=== PATIENT | female | born 1935 | race Asian ===

== ENCOUNTER 2019-12-01 21:11 | Inpatient (IN) | payer MEDICARE, OTHER ==
[~2019-12-01] VITALS: Ht 154.9 cm; Wt 53.0 kg
[2019-12-01 21:16] VITALS: BP 144/80
--- NOTE | 2019-12-01 21:29 | Emergency Room Report ---
History of Present Illness General Chief Complaint: Syncope Source: Patient, EMS (Serjio Shirley MD) Present Illness HPI Patient is an 84-year-old female who presents after syncopal episodes at home. Patient reportedly had 2 syncopal episodes earlier today. Had Been having increased generalized rash for 1 day. Patient had vomited twice earlier in the day. Reports feeling lightheaded prior to episode of loss of consciousness. Patient subsequently had been back to her mental status. Patient was standing at the time of initial syncopal episode. Per family member patient had unwitnessed fall. Patient had second syncopal episode which was witnessed by family member while attempting to get to the bathroom. Patient had no recent fever. (Serjio Shirley MD) Allergies: Coded Allergies: No Known Allergies (Unverified , 12/01/19) COVID-19 Screening Contact w/high risk pt: No Experienced COVID-19 symptoms?: No COVID-19 Testing performed MANAGER BUSINESS: No (Serjio Shirley MD) Patient History Past Medical History: see triage record Reviewed Nursing Documentation: PMH: Agreed; PSxH: Agreed (Serjio Shirley MD) Nursing Documentation-PMH Hx Hypertension: Yes (Serjio Shirley MD) Review of Systems Respiratory: Reports: no symptoms Skin: Reports: rash Allergic: Reports: urticaria All Other Systems: negative except mentioned in HPI (Serjio Shirley MD) Physical Exam Vital Signs Date Time Temp Pulse Resp B/P (MAP) Pulse Ox O2 Delivery O2 Flow Rate FiO2 12/01/19 21:08 97.9 90 18 144/80 (101) 99 Room Air Sp02 EP Interpretation: normal General Appearance: alert, GCS 15, Chronically Ill ENT: normal ENT inspection Neck: limited range of motion Respiratory: lungs clear Cardiovascular #1: normal peripheral pulses, no edema Gastrointestinal: normal inspection, soft Musculoskeletal: back normal, normal range of motion Neurologic: alert, motor strength/tone normal, educational technology specialist III-XII nml as tested, oriented x3 Skin: other - Diffuse urticarial rash (Serjio Shirley MD) Medical Decision Making Diagnostic Impression: Primary Impression: Recurrent syncope Additional Impression: Head injury ER Course Presented for syncopal episodes. Differential diagnosis include was not limited to arrhythmia, vasovagal syncope, orthostatic hypotension, allergic reaction among others. Because of complexity of patient's case laboratory tests and imaging studies were ordered. EKG interpreted by me showed normal sinus rhythm with a rate of 86. Laboratory testing was ordered and patient was given Solu-Medrol due to what appears to be some urticarial rash appears to be an allergic reaction. Patient was normotensive. She does have prior history of hypertension but denies any prior cardiac history. She does not describe any palpitations but did state she felt lightheaded prior to passing out. Because of the patient's multiple syncopal episodes today feel inpatient hospitalization is warranted. Laboratory testing is currently partially pending but patient was noted to have markedly elevated d-dimer. CT imaging of the head was ordered due to recent trauma. CT of the chest was ordered for possible pulmonary embolism. Chest x-ray read by radiology showed no evidence of acute pathology. Patient was endorsed to Dr. Hare pending CT imaging as well as authorization for admission. Labs Test 12/01/19 21:30 12/01/19 21:45 White Blood Count 9.8 K/UL (4.8-10.8) Red Blood Count 4.51 M/UL (4.20-5.40) Hemoglobin 15.3 G/DL (12.0-16.0) Hematocrit 45.4 % (37.0-47.0) Mean Corpuscular Volume 101 FL (80-99) Mean Corpuscular Hemoglobin 34.0 PG (27.0-31.0) Mean Corpuscular Hemoglobin Concent 33.8 G/DL (32.0-36.0) Red Cell Distribution Width 12.3 % (11.6-14.8) Platelet Count 223 K/UL (150-450) Mean Platelet Volume 7.9 FL (6.5-10.1) Neutrophils (%) (Auto) 78.6 % (45.0-75.0) Lymphocytes (%) (Auto) 15.1 % (20.0-45.0) Monocytes (%) (Auto) 5.5 % (1.0-10.0) Eosinophils (%) (Auto) 0.3 % (0.0-3.0) Basophils (%) (Auto) 0.6 % (0.0-2.0) Prothrombin Time 11.1 SEC (9.30-11.50) Prothromb Time International Ratio 1.0 (0.9-1.1) Activated Partial Thromboplast Time 22 SEC (23-33) D-Dimer 33.51 mg/L FEU (0.00-0.49) (Serjio Shirley MD) ER Course Patient was signed out to me by the previous physician. She remained hemodynamically stable throughout the rest of her stay in the emergency department. CT head showed chronic age-related changes but no acute intracranial hemorrhage or space-occupying lesion. CT angiography of the chest was negative for any pulmonary embolism or aortic dissection. There was a very mild left effusion with posterior dependent atelectasis. Otherwise largely unremarkable. Patient was admitted to telemetry in stable condition. (Austin Hare M.D.) EKG Diagnostic Results Rate: normal Rhythm: NSR ST Segments: no acute changes (Serjio Shirley MD) Last Vital Signs Date Time Temp Pulse Resp B/P (MAP) Pulse Ox O2 Delivery O2 Flow Rate FiO2 12/01/19 21:16 97.9 90 18 144/80 99 Room Air Status: improved (Serjio Shirley MD) Disposition: ADMITTED INPATIENT Condition: Serious Serjio Shirley MD Dec 01, 2019 21:29 Austin Hare M.D. Dec 02, 2019 00:59
[2019-12-01] MEDS ORDERED: DiphenhydrAMINE 50mg/ml Inj IVP ONE (21:30)
[2019-12-01] MEDS ORDERED: Solu-MEDROL 125mg Inj IVP ONE (21:30)
[2019-12-01 21:41] LABS: BASOPHILS % (AUTO) 0.6 % (0.0-2.0); EOSINOPHILS % (AUTO) 0.3 % (0.0-3.0); HEMATOCRIT 45.4 % (37.0-47.0); HEMOGLOBIN 15.3 G/DL (12.0-16.0); LYMPHOCYTES % (AUTO) 15.1 % (20.0-45.0); MEAN CORPUSCULAR VOLUME 101 FL (80-99); MONOCYTES % (AUTO) 5.5 % (1.0-10.0); NEUTROPHILS % (AUTO) 78.6 % (45.0-75.0); PLATELET COUNT 223 K/UL (150-450); RED BLOOD COUNT 4.51 M/UL (4.20-5.40); RED CELL DISTRIBUTION WIDTH 12.3 % (11.6-14.8); WHITE BLOOD COUNT 9.8 K/UL (4.8-10.8)
--- NOTE | 2019-12-01 22:11 | Diagnostic Imaging Report ---
EXAM: XR Chest, 1 View CLINICAL HISTORY: SYNCOPE TECHNIQUE: Frontal view of the chest. COMPARISON: None. FINDINGS: Lungs: Unremarkable. No consolidation. Pleural space: Unremarkable. No pneumothorax. Heart: Unremarkable. No cardiomegaly. Mediastinum: Unremarkable. Bones/joints: Osteopenia along with degenerative disease of the shoulders and spine. Vasculature: Atherosclerotic disease of aorta. IMPRESSION: No acute cardiopulmonary disease.
[2019-12-01] MEDS ORDERED: Omnipaque 350 100ml vial INJ PRN (22:30)
[2019-12-01 22:35] LABS: CALCIUM 9.5 MG/DL (8.5-10.1); CREATININE 0.9 MG/DL (0.55-1.30); POTASSIUM 4.2 MMOL/L (3.5-5.1)
[2019-12-01 22:42] LABS: ALBUMIN 3.2 G/DL (3.4-5.0); ALBUMIN/GLOBULIN RATIO 0.8 (1.0-2.7); BILIRUBIN,TOTAL 0.7 MG/DL (0.2-1.0)
[2019-12-01 23:00] VITALS: BP 133/77
--- NOTE | 2019-12-01 23:25 | Diagnostic Imaging Report ---
EXAM: CT Head Without Intravenous Contrast CLINICAL HISTORY: FALL TECHNIQUE: Axial computed tomography images of the head/brain without intravenous contrast. CTDI is 53.4 mGy and DLP is 992.1 mGy-cm. One or more of the following dose reduction techniques were used: automated exposure control, adjustment of the mA and/or kV according to patient size, use of iterative reconstruction technique. COMPARISON: None. FINDINGS: Brain: Moderate generalized brain atrophy. Decreased attenuation within the deep white matter consistent with microangiopathic white matter disease. No hemorrhage. Ventricles: Unremarkable. No ventriculomegaly. Bones/joints: Unremarkable. No acute fracture. Soft tissues: Unremarkable. Sinuses: Unremarkable as visualized. No acute sinusitis. Mastoid air cells: Unremarkable as visualized. No mastoid effusion. IMPRESSION: Chronic changes as described. No acute intracranial hemorrhage or space-occupying lesion.
[2019-12-01 23:33] LABS: APPEARANCE,URINE CLEAR; BILIRUBIN, URINE NEGATIVE (NEGATIVE); COLOR,URINE PALE YELLOW; GLUCOSE, URINE (UA) NEGATIVE (NEGATIVE); KETONES,URINE NEGATIVE (NEGATIVE); LEUKOCYTE ESTERASE ,URINE 1+ (NEGATIVE); NITRITE,URINE NEGATIVE (NEGATIVE); PH,URINE 7 (4.5-8.0); PROTEIN,URINE NEGATIVE (NEGATIVE); UROBILINOGEN,URINE NORMAL MG/DL (0.0-1.0)
--- NOTE | 2019-12-01 23:44 | Diagnostic Imaging Report ---
EXAM: CT Angiography Chest With Intravenous Contrast CLINICAL HISTORY: SYNCOPE TECHNIQUE: Axial computed tomographic angiography images of the chest with intravenous contrast. CTDI is 50.5 mGy and DLP is 139.9 mGy-cm. One or more of the following dose reduction techniques were used: automated exposure control, adjustment of the mA and/or kV according to patient size, use of iterative reconstruction technique. MIP reconstructed images were created and reviewed. COMPARISON: None. FINDINGS: Limitations: Exam is limited due to motion and breathing artifact along with decreased inspiratory effort. Pulmonary arteries: Normal enhancement of the pulmonary arteries. No pulmonary embolism. Aorta: Atherosclerotic disease of aorta with no aneurysm. No dissection. Lungs: There is multi lobar bilateral posterior dependent atelectasis more significant with the bilateral lower lobes. There is decreased respiratory effort with vascular crowding. No mass. Pleural space: Unremarkable. No significant effusion. No pneumothorax. Heart: Mild cardiomegaly. No significant pericardial effusion. No evidence of RV dysfunction. Bones/joints: Diffuse osteopenia along with multilevel disc degenerative disease. No acute fracture. No dislocation. Soft tissues: Unremarkable. Lymph nodes: Right-sided hilar lymph node measuring 1.7 x 1.5 cm. Right infracarinal lymph node measuring 1.5 x 1.9 cm. Small lymph nodes along the aortopulmonary region largest measuring 4.9 cm maximum dimension. Liver: Upper abdominal structures revealed diffuse fatty liver. Low-attenuation nodules within the left thyroid lobe largest measuring 1. 0 cm. IMPRESSION: 1. No pulmonary embolus or aortic dissection. 2. Mild left effusion with posterior dependent atelectasis. 3. Mild mediastinal and right hilar lymphadenopathy, etiology indeterminate. 4. Diffuse fatty liver. 5. Low-attenuation lesions within the thyroid gland, nonspecific. If indicated, thyroid gland may be further evaluated with ultrasound in the nonacute setting.
[2019-12-02] VITALS (7 sets, daily range): BP systolic 122–163; BP diastolic 62–90
[2019-12-02] MEDS ORDERED: NORVASC5 MG ORAL (01:43)
[2019-12-02] MEDS ORDERED: ECOTRIN325 MG ORAL (01:46)
[2019-12-02] MEDS ORDERED: LOSARTAN POTASS25 MG ORAL (01:46)
[2019-12-02] MEDS ORDERED: SIMVASTATIN20 MG ORAL (01:46)
[2019-12-02] MEDS ORDERED: Losartan 25mg tab ORAL PRN (05:30)
[2019-12-02 07:56] LABS: HEMATOCRIT 42.8 % (37.0-47.0); HEMOGLOBIN 14.5 G/DL (12.0-16.0); MEAN CORPUSCULAR VOLUME 98 FL (80-99); PLATELET COUNT 227 K/UL (150-450); RED BLOOD COUNT 4.37 M/UL (4.20-5.40); RED CELL DISTRIBUTION WIDTH 11.6 % (11.6-14.8); WHITE BLOOD COUNT 5.9 K/UL (4.8-10.8)
[2019-12-02 08:11] LABS: CALCIUM 8.2 MG/DL (8.5-10.1); CREATININE 0.9 MG/DL (0.55-1.30); POTASSIUM 4.4 MMOL/L (3.5-5.1)
[2019-12-02] MEDS: Aspirin EC 81mg tab ORAL SCH (08:50)
[2019-12-02] MEDS: Heparin 5000 units/ml inj SUBQ SCH ×2 (08:52→20:58)
[2019-12-02] MEDS ORDERED: Losartan 25mg tab ORAL SCH (09:00)
--- NOTE | 2019-12-02 13:21 | History & Physical ---
History and Physical History & Physicial 84-year-old female presents with multiple syncopal episodes at home. Family at the bedside and care was discussed. Currently she is doing well. Patient has noticed worsening generalized rash which is pruritic. Patient also with vomitus of bilious material. Currently the patient is comfortable in bed. Family is concerned about the rash. There is no significant history of cardiac disease. Past medical history notable for urticaria, hypertension, hypercholesterolemia Medications reviewed and reconciled Allergies reviewed and reconciled Social historynon-smoker nondrinker unemployed lives with family Review of systems otherwise negative Physical examination Well-developed female overall comfortable Vital signs reviewed Lungs are fairly clear and symmetric Cardiac exam normal sinus to regular rhythm without murmurs rubs gallops Abdomen soft nontender Extremities no cyanosis clubbing or edema Neurologically overall nonfocal alert but [id number] next vital signs 157/90, 106, 97 6, 19 Lab data CAT scan with small left pleural effusion Mild mediastinal and right hilar lymphadenopathy Fatty liver Labs Test 12/01/19 21:30 12/01/19 21:45 12/01/19 23:22 12/02/19 05:55 White Blood Count 9.8 K/UL (4.8-10.8) 5.9 K/UL (4.8-10.8) Red Blood Count 4.51 M/UL (4.20-5.40) 4.37 M/UL (4.20-5.40) Hemoglobin 15.3 G/DL (12.0-16.0) 14.5 G/DL (12.0-16.0) Hematocrit 45.4 % (37.0-47.0) 42.8 % (37.0-47.0) Mean Corpuscular Volume 101 FL (80-99) 98 FL (80-99) Mean Corpuscular Hemoglobin 34.0 PG (27.0-31.0) 33.1 PG (27.0-31.0) Mean Corpuscular Hemoglobin Concent 33.8 G/DL (32.0-36.0) 33.8 G/DL (32.0-36.0) Red Cell Distribution Width 12.3 % (11.6-14.8) 11.6 % (11.6-14.8) Platelet Count 223 K/UL (150-450) 227 K/UL (150-450) Mean Platelet Volume 7.9 FL (6.5-10.1) 6.6 FL (6.5-10.1) Neutrophils (%) (Auto) 78.6 % (45.0-75.0) % (45.0-75.0) Lymphocytes (%) (Auto) 15.1 % (20.0-45.0) % (20.0-45.0) Monocytes (%) (Auto) 5.5 % (1.0-10.0) % (1.0-10.0) Eosinophils (%) (Auto) 0.3 % (0.0-3.0) % (0.0-3.0) Basophils (%) (Auto) 0.6 % (0.0-2.0) % (0.0-2.0) Prothrombin Time 11.1 SEC (9.30-11.50) Prothromb Time International Ratio 1.0 (0.9-1.1) Activated Partial Thromboplast Time 22 SEC (23-33) D-Dimer 33.51 mg/L FEU (0.00-0.49) Sodium Level 140 MMOL/L (136-145) 146 MMOL/L (136-145) Potassium Level 4.2 MMOL/L (3.5-5.1) 4.4 MMOL/L (3.5-5.1) Chloride Level 105 MMOL/L (98-107) 109 MMOL/L (98-107) Carbon Dioxide Level 24 MMOL/L (21-32) 23 MMOL/L (21-32) Anion Gap 11 mmol/L (5-15) 14 mmol/L (5-15) Blood Urea Nitrogen 20 mg/dL (7-18) 15 mg/dL (7-18) Creatinine 0.9 MG/DL (0.55-1.30) 0.9 MG/DL (0.55-1.30) Estimat Glomerular Filtration Rate 59.7 mL/min (>60) 59.7 mL/min (>60) Glucose Level 217 MG/DL (74-106) 285 MG/DL (74-106) Calcium Level 9.5 MG/DL (8.5-10.1) 8.2 MG/DL (8.5-10.1) Total Bilirubin 0.7 MG/DL (0.2-1.0) Aspartate Amino Transf (AST/SGOT) 43 U/L (15-37) Alanine Aminotransferase (ALT/SGPT) 81 U/L (12-78) Alkaline Phosphatase 59 U/L (46-116) Troponin I 0.008 ng/mL (0.000-0.056) Pro-B-Type Natriuretic Peptide 181 pg/mL (0-125) Total Protein 7.1 G/DL (6.4-8.2) Albumin 3.2 G/DL (3.4-5.0) Globulin 3.9 g/dL Albumin/Globulin Ratio 0.8 (1.0-2.7) Urine Color Pale yellow Urine Appearance Clear Urine pH 7 (4.5-8.0) Urine Specific [place] 1.005 (1.005-1.035) Urine Protein Negative (NEGATIVE) Urine Glucose (UA) Negative (NEGATIVE) Urine Ketones Negative (NEGATIVE) Urine Blood Negative (NEGATIVE) Urine Nitrite Negative (NEGATIVE) Urine Bilirubin Negative (NEGATIVE) Urine Urobilinogen Normal MG/DL (0.0-1.0) Urine Leukocyte Esterase 1+ (NEGATIVE) Urine RBC 0-2 /HPF (0 - 2) Urine WBC 0-2 /HPF (0 - 2) Urine Squamous Epithelial Cells Occasional /LPF Urine Bacteria Occasional /HPF (NONE) Differential Total Cells Counted 100 Neutrophils % (Manual) 84 % (45-75) Lymphocytes % (Manual) 15 % (20-45) Monocytes % (Manual) 1 % (1-10) Eosinophils % (Manual) 0 % (0-3) Basophils % (Manual) 0 % (0-2) Band Neutrophils 0 % (0-8) Platelet Estimate Adequate Platelet Morphology Normal Red Blood Cell Morphology Normal IMPRESSION Syncope Hypertension Hypercholesterolemia Mild protein calorie malnutrition Plan IV hydration Cardiology evaluation Resume medication Physical therapy evaluation Monitor clinically and proceed with discharge planning impression, plan, and exam edited and reviewed in detail care discussed with Ayan Malloy MD Dec 02, 2019 13:21
[2019-12-02] MEDS: Losartan 25mg tab ORAL SCH (17:47)
[2019-12-02] MEDS ORDERED: Triamcinolone 0.1% 15gm Cr TOPIC PRN (19:00)
[2019-12-02] MEDS: Solu-MEDROL 40mg Inj IVP SCH (20:58)
[2019-12-02] MEDS: Atorvastatin 20mg tab ORAL SCH (20:58)
--- NOTE | 2019-12-02 23:30 | Consultation ---
DATE OF CONSULTATION: 12/02/2019 CARDIOLOGY CONSULTATION CONSULTING PHYSICIAN: David Pardo MD REQUESTING PHYSICIAN: Ayan Pacheco MD REASON FOR CONSULTATION: Syncope. HISTORY OF PRESENT ILLNESS: The patient is an 84-year-old female. She has had several syncopal episodes at home. The patient apparently has been increasingly weak, withdrawn, and has had several episodes of vomitus of biliary material. She also has developed rash over the past couple of days. There is no prior history of cardiovascular disease other than hypertension. The patient did not sustain any injuries when passing out. The patient's first syncopal episode was unwitnessed; however, her second episode was witnessed by a family member while she was attempting to get to the bathroom. PAST MEDICAL HISTORY: Hyperlipidemia and hypertension. ALLERGIES: None. MEDICATIONS: Reviewed and reconciled. FAMILY HISTORY: Noncontributory. SOCIAL HISTORY: Negative for smoking, alcohol, or substance abuse. REVIEW OF SYSTEMS: Notable for rash and urticaria, otherwise all systems negative. PHYSICAL EXAMINATION: VITAL SIGNS: Blood pressure 144/80, heart rate 90, respiratory rate 18, and afebrile in the emergency room. Today, blood pressure 157/90, heart rate 106, respiratory rate 19. HEENT: Conjunctivae pink. Oropharynx clear. Mucous membranes dry. NECK: Supple. LUNGS: Clear. CARDIAC: Regular rhythm. Rapid rate. Normal S1, S2 with no murmur. ABDOMEN: Soft and nontender. EXTREMITIES: No edema. NEUROLOGIC: Symmetric strength. No asterixis. LABORATORY AND DIAGNOSTIC DATA: White count 9.8, hemoglobin 15.3, platelets 223,000. Sodium 146, potassium 4.4, bicarb 23, BUN 15, creatinine 0.9. Urinalysis, no active sediment. D-dimer is elevated to 33. Chest x-ray and CT angiogram of the chest were negative for pulmonary embolus or infiltrate. There was evidence of a small left pleural effusion and mild hilar adenopathy. EKG revealed sinus rhythm with no acute abnormalities. Echocardiogram revealed normal ejection fraction with no significant valve disease. IMPRESSION: Syncope, likely vasovagally mediated; dehydration and hypernatremia with mild hypovolemia; history of hypertension, now with rising blood pressure trend; history of hyperlipidemia; mild protein-calorie malnutrition, and uriticaria. No signs of acute coronary insufficiency or congestive heart failure. PLAN: Hydration. Monitor orthostatics. Free-water replacement. Avoid tight blood pressure control. Cardiac monitoring. David Pardo M.D. DR: Angelica JOB#: [id number] CC:
[2019-12-03] VITALS: BP 154/75
[2019-12-03 04:00] VITALS: BP 146/66
[2019-12-03 08:00] VITALS: BP 141/74
--- NOTE | 2019-12-03 08:17 | General Progress Note ---
Assessment/Plan Assessment/Plan: IMPRESSION Syncope Hypertension Hypercholesterolemia Mild protein calorie malnutrition possible orthostasis allergic dermatitis Plan IV steroids and TMC cream for rash IV hydration Cardiology evaluation noted Reviewed medication Physical therapy evaluation and dc planning Monitor clinically and proceed with discharge planning impression, plan, and exam edited and reviewed in detail care discussed with RN Subjective Allergies: Coded Allergies: No Known Allergies (Unverified , 12/01/19) Subjective overnight care reviewed no distress Objective Last 24 Hour Vital Signs Date Time Temp Pulse Resp B/P (MAP) Pulse Ox O2 Delivery O2 Flow Rate FiO2 12/03/19 04:00 75 12/03/19 04:00 97.7 72 20 146/66 (92) 95 12/03/19 01:21 154/75 12/03/19 00:00 97.5 84 20 154/75 (101) 95 12/03/19 00:00 83 12/03/19 00:00 95 91 85 12/02/19 21:00 Room Air 12/02/19 20:00 97.9 94 20 122/62 (82) 96 12/02/19 20:00 90 12/02/19 17:47 146/67 12/02/19 16:00 101 12/02/19 16:00 97.6 105 19 146/67 (93) 95 12/02/19 12:00 98.0 97 18 163/89 (113) 97 12/02/19 12:00 112 12/02/19 11:16 106 12/02/19 09:00 Room Air 12/02/19 08:49 157/90 12/02/19 08:49 106 157/90 Intake and Output 12/02/19 12/03/19 19:00 07:00 Intake Total 800 ml Output Total 400 ml Balance 800 ml -400 ml Other 800 ml Output Urine Total 400 ml # Voids 4 # Bowel Movements 1 Height (Feet): 5 Height (Inches): 1.00 Weight (Pounds): 110 Objective WDWN NAD clear breath sounds bilaterally without rhonchi or wheeze [id number] without MRG NABS nontender no HSM no CCE nonfocal Ayan Pacheco MD Dec 03, 2019 08:17
[2019-12-03 10:02] LABS: ANION GAP 10 mmol/L (5-15); BLOOD UREA NITROGEN 13 mg/dL (7-18); CALCIUM 7.8 MG/DL (8.5-10.1); CARBON DIOXIDE 24 MMOL/L (21-32); CHLORIDE 112 MMOL/L (98-107); CREATINE KINASE 124 U/L (26-308); CREATININE 0.7 MG/DL (0.55-1.30); POTASSIUM 3.9 MMOL/L (3.5-5.1); SODIUM 146 MMOL/L (136-145)
[2019-12-03] MEDS: Solu-MEDROL 40mg Inj IVP SCH (10:23)
[2019-12-03] MEDS: Aspirin EC 81mg tab ORAL SCH (10:23)
[2019-12-03] MEDS: Losartan 25mg tab ORAL SCH ×2 (10:24→18:00)
[2019-12-03] MEDS: Heparin 5000 units/ml inj SUBQ SCH ×2 (10:34→20:49)
[2019-12-03 12:00] VITALS: BP 138/64
[2019-12-03 16:00] VITALS: BP 147/62
[2019-12-03 20:00] VITALS: BP 147/81
[2019-12-03] MEDS: Atorvastatin 20mg tab ORAL SCH (20:49)
[2019-12-04] VITALS: BP 144/77
--- NOTE | 2019-12-04 00:49 | Cardiology Progress Note ---
Subjective DATE OF SERVICE: Dec 03, 2019 More alert On IVF Still with multiple electrolyte abn Monitor: sinus with no stacy or tachyarrhythmias No LOC Objective Last 24 Hour Vital Signs Date Time Temp Pulse Resp B/P (MAP) Pulse Ox O2 Delivery O2 Flow Rate FiO2 12/03/19 21:00 Room Air 12/03/19 20:00 98.1 73 18 147/81 (103) 97 12/03/19 20:00 76 12/03/19 18:00 147/62 12/03/19 16:00 89 12/03/19 16:00 97.5 68 18 147/62 (90) 97 12/03/19 12:00 97.7 67 18 138/64 (88) 96 12/03/19 12:00 74 12/03/19 10:26 65 141/74 12/03/19 10:24 141/74 12/03/19 09:00 Room Air 12/03/19 08:00 63 12/03/19 08:00 96.2 65 18 141/74 (96) 97 12/03/19 04:00 75 12/03/19 04:00 97.7 72 20 146/66 (92) 95 12/03/19 01:21 154/75 ROS: unchanged from my eval on 12/02/19. HEENT: normal ENT inspection RHYTHM: NSR LUNGS: lungs clear bilaterally CARDIAC: normal rate, regular rhythm, normal S1 and S2 ABDOMEN: normal bowel sounds, non tender, soft, no organomegaly EXTREMITIES: normal range of motion, non-tender, No edema Laboratory Tests Test 12/03/19 08:20 Sodium Level 146 MMOL/L (136-145) H Potassium Level 3.9 MMOL/L (3.5-5.1) Chloride Level 112 MMOL/L (98-107) H Carbon Dioxide Level 24 MMOL/L (21-32) Anion Gap 10 mmol/L (5-15) Blood Urea Nitrogen 13 mg/dL (7-18) Creatinine 0.7 MG/DL (0.55-1.30) Estimat Glomerular Filtration Rate > 60 mL/min (>60) Glucose Level 208 MG/DL (74-106) H Calcium Level 7.8 MG/DL (8.5-10.1) L Magnesium Level 1.9 MG/DL (1.8-2.4) Total Creatine Kinase 124 U/L (26-308) Microbiology Date/Time Source Procedure Growth Status 12/01/19 21:45 Nasopharynx SARS-CoV-2 RdRp Gene Assay - Final Complete Assessment/Plan Assessment/Plan Vasovagally mediated syncopal episode Hypovolemia Dehydration/hypernatremia Hypertension/HHD Urticarial rash Plan: Hypotonic IVF Continue telemetry additional 24hrs Steroid taper per PCP DVT prophyl David Pardo MD Dec 04, 2019 00:49
[2019-12-04 04:00] VITALS: BP 152/77
[2019-12-04 08:00] VITALS: BP 165/73
[2019-12-04] MEDS: Solu-MEDROL 40mg Inj IVP SCH (08:43)
[2019-12-04] MEDS: Losartan 25mg tab ORAL SCH ×2 (08:43→17:28)
[2019-12-04] MEDS: Aspirin EC 81mg tab ORAL SCH (08:43)
[2019-12-04] MEDS: Heparin 5000 units/ml inj SUBQ SCH ×2 (08:44→21:11)
--- NOTE | 2019-12-04 11:16 | General Progress Note ---
Assessment/Plan Assessment/Plan: IMPRESSION Syncope Hypertension Hypercholesterolemia Mild protein calorie malnutrition possible orthostasis allergic dermatitis Plan IV steroids and TMC cream for rash- dc in am IV hydration- hypotonic Cardiology evaluation noted Reviewed medication Physical therapy evaluation and dc planning Monitor clinically and proceed with discharge planning in am if stable and sodium improved impression, plan, and exam edited and reviewed in detail care discussed with RN Subjective Allergies: Coded Allergies: No Known Allergies (Unverified , 12/01/19) Subjective overnight care reviewed no distress RASH better Objective Last 24 Hour Vital Signs Date Time Temp Pulse Resp B/P (MAP) Pulse Ox O2 Delivery O2 Flow Rate FiO2 12/04/19 09:00 Room Air 12/04/19 08:43 165/73 12/04/19 08:43 79 165/73 12/04/19 08:00 97.5 79 18 165/73 (103) 96 12/04/19 08:00 82 12/04/19 04:50 70 68 74 12/04/19 04:00 97.7 80 18 152/77 (102) 96 12/04/19 04:00 74 12/04/19 00:00 69 12/04/19 00:00 97.9 70 17 144/77 (99) 97 12/03/19 21:00 Room Air 12/03/19 20:00 98.1 73 18 147/81 (103) 97 12/03/19 20:00 76 12/03/19 18:00 147/62 12/03/19 16:00 89 12/03/19 16:00 97.5 68 18 147/62 (90) 97 12/03/19 12:00 97.7 67 18 138/64 (88) 96 12/03/19 12:00 74 Intake and Output 12/03/19 12/04/19 19:00 07:00 Intake Total 360 ml 480 ml Balance 360 ml 480 ml Intake Oral 360 ml 480 ml # Voids 3 2 # Bowel Movements 1 1 Height (Feet): 5 Height (Inches): 1.00 Weight (Pounds): 110 Objective WDWN NAD clear breath sounds bilaterally without rhonchi or wheeze [id number] without MRG NABS nontender no HSM no CCE nonfocal Ayan Pacheco MD Dec 04, 2019 11:16
[2019-12-04 12:00] VITALS: BP 164/72
[2019-12-04 16:00] VITALS: BP 170/83
[2019-12-04] MEDS ORDERED: LOSARTAN POTASS50 MG ORAL (16:31)
[2019-12-04] MEDS ORDERED: HYDROCHLOROTH12.5 MG ORAL (16:32)
[2019-12-04 20:00] VITALS: BP 161/78
[2019-12-04] MEDS: Atorvastatin 20mg tab ORAL SCH (21:09)
[2019-12-05] VITALS: BP 148/71
--- NOTE | 2019-12-05 02:27 | Cardiology Progress Note ---
Subjective DATE OF SERVICE: Dec 04, 2019 More alert On IVF Still with multiple electrolyte abn Monitor: sinus with bradycardic episode during sleep today No LOC Objective Last 24 Hour Vital Signs Date Time Temp Pulse Resp B/P (MAP) Pulse Ox O2 Delivery O2 Flow Rate FiO2 12/05/19 00:00 97.8 78 17 148/71 (96) 98 12/05/19 00:00 62 12/04/19 21:09 161/78 12/04/19 21:00 Room Air 12/04/19 21:00 67 76 71 12/04/19 20:00 67 12/04/19 20:00 97.8 79 15 161/78 (105) 97 12/04/19 17:28 180/93 12/04/19 17:28 180/93 12/04/19 16:30 85 87 92 12/04/19 16:00 97.5 84 18 170/83 (112) 96 12/04/19 16:00 90 12/04/19 12:00 97.2 75 20 164/72 (102) 97 12/04/19 12:00 79 12/04/19 09:00 Room Air 12/04/19 08:43 165/73 12/04/19 08:43 79 165/73 12/04/19 08:00 97.5 79 18 165/73 (103) 96 12/04/19 08:00 82 12/04/19 04:50 70 68 74 12/04/19 04:00 97.7 80 18 152/77 (102) 96 12/04/19 04:00 74 ROS: unchanged from my eval on 12/02/19. HEENT: normal ENT inspection RHYTHM: NSR LUNGS: lungs clear bilaterally CARDIAC: normal rate, regular rhythm, normal S1 and S2 ABDOMEN: normal bowel sounds, non tender, soft, no organomegaly EXTREMITIES: normal range of motion, non-tender, No edema Assessment/Plan Assessment/Plan Vasovagally mediated syncopal episode Asymptomatic bradycardia during sleep Hypovolemia Dehydration/hypernatremia Hypertension/HHD with rising BP trend Urticarial rash Plan: Adjust IVF Continue telemetry additional 24hrs No current indication for pacing Steroid taper per PCP DVT prophyl David Pardo MD Dec 05, 2019 02:27
[2019-12-05] MEDS ORDERED: HydrALAZINE 10mg Tab ORAL PRN (03:00)
[2019-12-05 04:00] VITALS: BP 145/70
[2019-12-05 07:39] LABS: ANION GAP 11 mmol/L (5-15); BLOOD UREA NITROGEN 15 mg/dL (7-18); CALCIUM 8.4 MG/DL (8.5-10.1); CARBON DIOXIDE 25 MMOL/L (21-32); CHLORIDE 109 MMOL/L (98-107); CREATININE 0.7 MG/DL (0.55-1.30); POTASSIUM 3.3 MMOL/L (3.5-5.1); SODIUM 145 MMOL/L (136-145)
[2019-12-05 08:00] VITALS: BP 165/70
[2019-12-05] MEDS: Aspirin EC 81mg tab ORAL SCH (08:30)
[2019-12-05] MEDS: Losartan 25mg tab ORAL SCH (08:30)
[2019-12-05] MEDS: Solu-MEDROL 40mg Inj IVP SCH (08:31)
[2019-12-05] MEDS: Heparin 5000 units/ml inj SUBQ SCH (08:32)
--- NOTE | 2019-12-05 09:36 | General Progress Note ---
Assessment/Plan Assessment/Plan: IMPRESSION Syncope Hypertension Hypercholesterolemia Mild protein calorie malnutrition possible orthostasis allergic dermatitis Plan IV steroids dc for now dc home no HCTZ losartan daily Monitor clinically and proceed with discharge planning in am if stable and sodium improved impression, plan, and exam edited and reviewed in detail care discussed with RN Subjective Allergies: Coded Allergies: No Known Allergies (Unverified , 12/01/19) Subjective overnight care reviewed no distress RASH improved Objective Last 24 Hour Vital Signs Date Time Temp Pulse Resp B/P (MAP) Pulse Ox O2 Delivery O2 Flow Rate FiO2 12/05/19 08:30 165/70 12/05/19 08:00 96.3 74 18 165/70 (101) 98 12/05/19 04:00 43 12/05/19 04:00 97.6 60 17 145/70 (95) 97 12/05/19 00:00 97.8 78 17 148/71 (96) 98 12/05/19 00:00 62 12/04/19 21:09 161/78 12/04/19 21:00 Room Air 12/04/19 21:00 67 76 71 12/04/19 20:00 67 12/04/19 20:00 97.8 79 15 161/78 (105) 97 12/04/19 17:28 180/93 12/04/19 17:28 180/93 12/04/19 16:30 85 87 92 12/04/19 16:00 97.5 84 18 170/83 (112) 96 12/04/19 16:00 90 12/04/19 12:00 97.2 75 20 164/72 (102) 97 12/04/19 12:00 79 Intake and Output 12/04/19 12/05/19 19:00 07:00 Intake Total 1560 ml 300 ml Balance 1560 ml 300 ml Intake Oral 360 ml 300 ml IV Total 1200 ml # Voids 3 2 # Bowel Movements 1 1 Laboratory Tests 12/05/19 06:06: Sodium Level 145, Potassium Level 3.3L, Chloride Level 109H, Carbon Dioxide Level 25, Anion Gap 11, Blood Urea Nitrogen 15, Creatinine 0.7, Estimat Glomerular Filtration Rate > 60, Glucose Level 158H, Calcium Level 8.4L Height (Feet): 5 Height (Inches): 1.00 Weight (Pounds): 110 Objective WDWN NAD clear breath sounds bilaterally without rhonchi or wheeze [id number] without MRG NABS nontender no HSM no CCE nonfocal Ayan Pacheco MD Dec 05, 2019 09:36
[2019-12-05 09:48] VITALS: BP 165/70
[2019-12-05] MEDS ORDERED: 1/2 NS 1000ml IV ONE (11:04)
--- NOTE | 2019-12-05 21:37 | Cardiology Report ---
APPROVED REPORT EXAM: Two-dimensional and M-mode echocardiogram with Doppler and color Doppler. INDICATION Syncope M-Mode DIMENSIONS IVSd1.2 (0.7-1.1cm)Left Atrium (MM)2.7 (1.6-4.0cm) LVDd4.7 (3.5-5.6cm)Aortic Root2.9 (2.0-3.7cm) PWd0.8 (0.7-1.1cm)Aortic Cusp Exc.1.5 (1.5-2.0cm) IVSs1.2 cm LVDs3.3 (2.5-4.0cm) PWs1.6 cm <Conclusion> Technically difficult study due to poor acoustical windows. Normal left ventricular chamber size, systolic function and wall motion to extent visualized. Left ventricular ejection fraction estimated to be 60-65%. Anterior Echo-free space, may be due to pericardial fat or effusion. All other cardiac chamber sizes are within normal limits. Calcification of aortic valve with adequate cusp excursion. Thickened mitral valve leaflets with normal excursion. Mitral annulus and aortic root calcification. Pulmonic valve not well visualized. Normal tricuspid valve structure. IVC at normal size with physiologic collapse. A color flow and spectral Doppler study was performed and revealed: Trace mitral regurgitation. Trace tricuspid regurgitation. Tricuspid systolic velocities suggests peak right ventricular systolic pressure of 16 mmHg.
--- NOTE | 2019-12-05 21:56 | Cardiology Report ---
APPROVED REPORT EKG Measurement Heart [id number] <Conclusion> Normal sinus rhythm Normal ECG
--- NOTE | 2019-12-06 00:20 | Cardiology Progress Note ---
Subjective DATE OF SERVICE: Dec 05, 2019 Remains alert and in no distress Off IVF Monitor: sinus with no symptomatic bradycardic episodes noted No LOC Objective Last 24 Hour Vital Signs Date Time Temp Pulse Resp B/P (MAP) Pulse Ox O2 Delivery O2 Flow Rate FiO2 12/05/19 09:48 74 165/70 12/05/19 09:00 66 74 81 12/05/19 09:00 Room Air 12/05/19 08:30 165/70 12/05/19 08:00 96.3 74 18 165/70 (101) 98 12/05/19 07:43 72 12/05/19 04:00 43 12/05/19 04:00 97.6 60 17 145/70 (95) 97 ROS: unchanged from my eval on 12/02/19. HEENT: normal ENT inspection RHYTHM: NSR LUNGS: lungs clear bilaterally CARDIAC: normal rate, regular rhythm, normal S1 and S2 ABDOMEN: normal bowel sounds, non tender, soft, no organomegaly EXTREMITIES: normal range of motion, non-tender, No edema Laboratory Tests Test 12/05/19 06:06 Sodium Level 145 MMOL/L (136-145) Potassium Level 3.3 MMOL/L (3.5-5.1) L Chloride Level 109 MMOL/L (98-107) H Carbon Dioxide Level 25 MMOL/L (21-32) Anion Gap 11 mmol/L (5-15) Blood Urea Nitrogen 15 mg/dL (7-18) Creatinine 0.7 MG/DL (0.55-1.30) Estimat Glomerular Filtration Rate > 60 mL/min (>60) Glucose Level 158 MG/DL (74-106) H Calcium Level 8.4 MG/DL (8.5-10.1) L Assessment/Plan Assessment/Plan Vasovagally mediated syncopal episode 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 Asymptomatic bradycardia during sleep Hypovolemia Dehydration/hypernatremia Hypertension/HHD with rising BP trend Urticarial rash Plan: Outpatient follow-up with consideration for Ziopatch No current indication for pacing Avoid all meds with negative chronotropic potential David Pardo MD Dec 06, 2019 00:20
--- NOTE | 2019-12-07 08:22 | Discharge Summary ---
Discharge Summary Discharge Summary _ DATE OF ADMISSION: 12/01/2019 DATE OF DISCHARGE: 12/05/2019 DISCHARGED BY: Dr. Pacheco REASON FOR ADMISSION: 84 years old female with past medical history of hypertension, hypercholesterolemia, presented to emergency department from home after syncopal episode. Patient reported two syncopal episodes earlier that day. Patient vomited twice earlier in the day. Patient also reported generalized rash. She reported feeling lightheaded prior to the episode. She reported loss of consciousness. Patient was standing at the time of the syncopal episode. Patient had unwitnessed fall during the first episode. Second syncopal episode was witnessed by family member , while attempting to get her to the bathroom. No fever or chills. Upon evaluation vital signs were stable. Blood pressure was 144/80. Laboratory work-up revealed no leukocytosis ,stable hemoglobin ,hematocrit and platelet count. BUN 20, creatinine 0.9. Stable electrolytes. Troponin negative , pro BNP 181. EKG revealed sinus rhythm, no acute ischemic changes. Albumin 3.2. Elevated D dimer -33.5 Rapid COVID 19 was negative. Urinalysis revealed no evidence of urinary tract infection. Chest x-ray revealed no acute cardiopulmonary pathology. CT of the head demonstrated chronic changes, but no acute intracranial hemorrhage or space-occupying lesion. CTA of the chest revealed no evidence of pulmonary emboli or aortic dissection. Mild left effusion with posterior dependent atelectasis was noted. Patient received 1 L of fluids, loading dose of steroid , Benadryl and admitted for further management. CONSULTANTS: operational communication chief [facility] COURSE: Patient admitted to telemetry floor. Patient started on gentle IV hydration. Hydrochlorothiazide thart patient was at home , was hold. Orthostatic vital signs were negative. Echocardiogram demonstrated preserved ejection fraction of 60 to 65%. No evidence of wall motion abnormality. Potassium was replaced. Magnesium remained stable. Per operational communication chief , syncopal episode was likely vasovagally mediated. Telemetry demonstrated asymptomatic bradycardia during sleep. Patient likely had sinus node disease. Blood pressure was managed with calcium channel osito and angiotensin receptor osito. Hydralazine was on board as needed. Aspirin and statin continued. DVT prophylax and GI prophylaxis provided. Fall precautions maintained. Patient was working with physical therapist. Patient was on the IV steroids and Benadryl for urticarial rash. Rash significantly improved , nearly resolved . Steroids tapered and discontinued prior to discharge. Fund Manager recommended outpatient follow-up with consideration for ZIO patch. Patient need to avoid all medications with d negative chronotropic potential. Patient's family advised not to resume hydrochlorothiazide upon discharge, and vontinue antihypertensive medications as in the hospital. Patient clinically stabilized and was ready for discharge home. FINAL DIAGNOSES: Vasovagally mediated syncopal episode Hypertension/hypertensive heart disease (with rising BP trend) Sinus node disease ( no urgent criteria for pacemaker at this time) Asymptomatic bradycardia (during sleep) Dehydration/hypovolemia Hypernatremia Urticarial rash -improved Hypercholesterolemia Mild protein calorie malnutrition DISCHARGE MEDICATIONS: See Medication Reconciliation list. DISCHARGE INSTRUCTIONS: Patient was discharged home. Follow-up with a primary care provider in 1 week. I have been assigned to dictate discharge summary for this account. I was not involved in the patient's management. Lisa Salinas NP Dec 07, 2019 08:22
== END 2019-12-05 11:05 | disposition home or self-care (01) | DRG 312 ==
LOC: EDBD 21:11 → EMR 21:56 → 2E 23:15 → EDBEDREQ 23:48
DX: R55 Syncope and collapse (principal); E44.1 Mild protein-calorie malnutrition; E87.0 Hyperosmolality and hypernatremia; Z68.20 Body mass index [BMI] 20.0-20.9, adult; E86.0 Dehydration; E86.1 Hypovolemia; E78.00 Pure hypercholesterolemia, unspecified; I11.9 Hypertensive heart disease without heart failure; K76.0 Fatty (change of) liver, not elsewhere classified; R00.1 Bradycardia, unspecified
CPT/HCPCS: 36415; 70450; 71045; 71275; 80048; 80053; 81003; 82550; 83735; 83880; 84484; 85007; 85025; 85379; 85610; 85730; 86850; 86900; 86901; 93005; 93306; 96361; 96374; 96375; 99285; J7030; J8499; U0002